=== PATIENT | female | born 1955 | race Two or more races ===

== ENCOUNTER 2024-03-25 15:36 | Emergency (ER) | payer OTHER, SELFPAY ==
[2024-03-25 15:41] VITALS: BP 166/96
[2024-03-25 16:08] LABS: % Eosinophils 1.9 % (0-6); % Immature Granulocytes 0.3 % (0-0.5); % Lymphocytes 18.9 % (20.5-51.1); % Monocytes 7.6 % (1.7-9.3); % Neutrophils 70.3 % (42.2-75.2); Absolute Basophils 0.1 10^3/uL (0-0.2); Absolute Eosinophils 0.2 10^3/uL (0-0.7); Absolute Lymphocytes 1.5 10^3/uL (1.2-3.4); Absolute Monocytes 0.6 10^3/uL (0.1-0.6); Absolute Neutrophils 5.5 10^3/uL (1.4-6.5); Hematocrit 37.2 % (37.0-47.0); Hemoglobin 12.8 g/dL (12.0-16.0); Mean Corp Hgb Conc. 34.4 g/dL (33.0-37.0); Mean Corpuscular Hgb 34.7 pg (27.0-31.0); Mean Corpuscular Volume 100.8 fL (81.0-99.0); Mean Platelet Volume 10.4 fL (7.4-10.4); Nucleated Red Blood Cells % 0 %; Platelet Count 174 10^3/uL (130-400); Red Blood Cell Count 3.69 10^6/uL (4.20-5.40); White Blood Cell Count 7.8 10^3/uL (4.8-10.8)
[2024-03-25 16:22] LABS: ALT (SGPT) 33 U/L (0-35); AST (SGOT) 28 U/L (14-36); Albumin 4.4 g/dl (3.5-5.0); Alkaline Phosphatase 39 U/L (38-126); Blood Urea Nitrogen 27 mg/dl (7-17); Calcium 9.7 mg/dl (8.4-10.2); Carbon Dioxide 30 mmol/L (22-30); Chloride 102 mmol/L (98-107); Glucose 119 mg/dl (70-99); Potassium 4.3 mmol/L (3.5-5.1); Sodium 140 mmol/L (135-145); Total Bilirubin < 0.1 mg/dl (0.2-1.3); Total Protein 6.7 g/dl (6.3-8.2); eGFR > 60.00
[2024-03-25 17:43] VITALS: BP 135/77
[2024-03-25 20:03] VITALS: BP 151/81
--- NOTE | 2024-03-25 23:24 | ED.GENMED ---
History of Present Illness
General
Chief Complaint: Ear Problem
Source: patient
Exam Limitations: none
Time Seen by Provider: 03/25/24 18:53
Nursing documentation reviewed up to this point in time: agreed with
History of Present Illness
History of Present Illness:
Patien to ED with complaint of ringing in ears, hearing her voice echo in her ears. Symptomsstartedapprox 1 mos ago. Reports weakness. No headache or dizziness. Denies fever/chills, recent illness. No history of trauma. Brought to ED by sp0use
for eval.
Past History
Past History
ED Past Medical History: Hypercholesterolemia
ED Past Surgical History: None
Review of Systems
Review of Systems
Allergies reviewed?: Yes
All Other Systems: ROS reviewed and negative except as documented in HPI and ROS
Constitutional: Reports no symptoms
EENT: Reports other (ringing in ears, voice echoing in ears)
Respiratory: Reports no symptoms
Cardiac: Reports no symptoms
ABD/GI: Reports no symptoms
: Reports no symptoms
Musculoskeletal: Reports no symptoms
Skin: Reports no symptoms
Neurological: Reports weakness
Psychiatric: Reports no symptoms
Phy Exam
General Physical Exam
General Presentation: well appearing and no apparent distress
General age: appears stated age
General Skin: warm and dry
General Habitus: normal
General Mental: alert
ENT Exam
ENT Exam: EOMI, TM's normal, neck supple and swallowing well
Cardiovascular Exam
Cardiovascular Exam: regular rate/rhythm
Pulmonary Exam
Pulmonary Exam: lungs clear and no respiratory distress
Neurological Exam
Neurological Exam: alert, oriented x3, CN II-XII intact, no motor deficits, no sensory deficits, speech normal and normal gait
Musculoskeletal Exam
Musculoskeletal Exam: full ROM and neuro vasc intact
Skin Exam
Skin Exam: normal color, warm/dry and no rash
Psychiatric Exam
Psychiatric Exam: normal mood/affect
Course
Orders/Labs/Results
Orders:
Orders
03/25/24 15:54
CMP [Comprehensive Metabolic Panel] Urgent
Complete Blood Count/With Diff Urgent
03/25/24 19:13
CT Head W/o Iv Contrast Urgent
Comment:
Reason For Exam: weakness pain
Abnormal Lab Results
03/25/24
15:54
RBC 3.69 L 10^6/uL
(4.20-5.40)
MCV 100.8 H fL
(81.0-99.0)
MCH 34.7 H pg
(27.0-31.0)
Lymphocytes % 18.9 L %
(20.5-51.1)
BUN 27 H mg/dl
(7-17)
Glucose 119 H mg/dl
(70-99)
Total Bilirubin < 0.1 L mg/dl
(0.2-1.3)
03/25/24 15:54
03/25/24 15:54
Vital Signs
Initial and Last Documented VS:
Initial Vital Signs
Temp Pulse Resp BP Pulse Ox
98.3 F 69 18 166/96 98
03/25/24 15:41 03/25/24 15:41 03/25/24 15:41 03/25/24 15:41 03/25/24 15:41
Last Documented Vital Signs
Temp Pulse Resp BP Pulse Ox
97.9 F 57 18 151/81 99
03/25/24 17:43 03/25/24 20:03 03/25/24 20:03 03/25/24 20:03 03/25/24 20:03
MDM/Problems Addressed
Differential Diagnosis Includes:
Patiet to ED with complaint of ringing in ears, hearing her voice echo in her ears. Labs reviewed, CT reviewed. No findings to explain her symptoms. Will discharge home and she will follow up with ENT as planned. Given instructions on s/s to
return to ED and she is agreeable to plan. Differential includes but is not limited to: tinnitus, carotid stenosis, auditory hallucinations, anxiety
*Radiology
Radiology exam reviewed: radiology read reviewed
*Pulse Oximetry
Patient hypoxic: no
*Critical Care Note
Total Time (30-74mins, 75-104mins- exclusive of procedures): Not Applicable
ED Attending Note
-
Portions of this chart may have been created with voice recognition software.� Occasional wrong word or��sound alike� substitutions may have occurred due to the inherent limitations of voice recognition software.
Discharge Plan
Departure
Patient Disposition: Home (Routine Discharge)
Date of Disposition: 03/25/24
Time of Disposition: 21:03
Patient with high blood pressure during this ER visit?: No
Condition: Good
Covid-19: Not Applicable
Discharge Problem:
Tinnitus
Instructions: Tinnitus (ringing in the ears)
Activity Restrictions/Additional Instructions:
Follow up with your ENT provider as scheduled.
Interventions
Interventions:
*Risk Screen - Suicide Last Done: 03/25/24 19:20
*General Assessment Last Done: 03/25/24 15:41
*Neglect/Abuse Screening Last Done: 03/25/24 19:20
ED- Fall Risk Assessment Last Done: 03/25/24 19:20
*ED COVID-19 Vaccine History Last Done: 03/25/24 19:20
*Nursing Disposition Last Done: 03/25/24 21:24
Discharge Date and Time
Discharge Date/Time: 03/25/24 21:24
Print Language: Sami
== END 2024-03-25 21:24 | disposition home or self-care (01) ==
LOC: EMR 15:36
PROVIDERS: Emergency Medicine; EMERGENCY PHYSICIAN Emergency Medicine
DX: H93.13 Tinnitus, bilateral (principal); R53.1 Weakness; R42 Dizziness and giddiness; E78.00 Pure hypercholesterolemia, unspecified
CPT/HCPCS: 99284; 70450; 80053; 85025